=== PATIENT | female | born 1980 ===

== ENCOUNTER 2024-06-14 06:13 | Emergency (ER) | payer SELFPAY ==
[2024-06-14 06:39] LABS: BASOPHILS PERCENT AUTO 0.1 % (0.0-1.0); EOSINOPHILS PERCENT AUTO 0.1 % (1.0-3.0); HEMATOCRIT 40.6 % (37.0-47.0); LYMPHOCYTES PERCENT AUTO 7.8 % (20.5-50.1); MEAN CORPUSCULAR HEMOGLOBIN 33.3 pg (27.0-34.0); MEAN CORPUSCULAR HGB CONC 34.5 g/dL (33.0-35.0); MEAN CORPUSCULAR VOLUME 96.7 fL (80-100); MONOCYTES PERCENT AUTO 4.8 % (2-8); NEUTROPHILS PERCENT AUTO 87.2 % (42.2-75.2); PLATELET COUNT,PLT 317 10^3/uL (150-450); WHITE BLOOD CELL COUNT,WBC 19.7 10^3/uL (5.0-10.0)
[2024-06-14] MEDS: fentaNYL 100 MCG/2 ML SDV IVPUSH ONE (06:42)
[2024-06-14] MEDS: Ondansetron 4 MG/2 ML SDV IVPUSH ONE ×2 (06:43→09:01)
[2024-06-14] MEDS: Sodium Chloride 0.9% 10 ML Syringe FLUSH PRN (06:43)
[2024-06-14] MEDS: Lactated Ringers 1,000 ML IV SCH ×2 (06:59→09:01)
[2024-06-14] MEDS: Morphine 2 MG/ML SYRINGE IVPUSH ONE ×2 (07:04→09:00)
[2024-06-14 07:20] LABS: INR 0.9 (0.9-1.2); PROTHROMBIN TIME 9.5 SEC (9.0-12.0)
[2024-06-14 07:34] LABS: CORONAVIRUS COVID-19 NAA NEGATIVE (NEGATIVE); INFLUENZA A NAA NEGATIVE (NEGATIVE); INFLUENZA B NAA NEGATIVE (NEGATIVE)
[2024-06-14] MEDS: Morphine 4 MG/ML Syringe IVPUSH ONE (07:49)
[2024-06-14 07:58] LABS: ALANINE AMINOTRANSFERASE,ALT 38 U/L (14-59); ALBUMIN 3.9 g/dL (3.4-5.0); ALKALINE PHOSPHATASE 56 U/L (46-116); ASPARTATE AMNIOTRANSFERASE,AST 18 U/L (15-37); BILIRUBIN TOTAL 0.6 mg/dL (0.2-1.0); BLOOD UREA NITROGEN,BUN 10 mg/dL (7-18); BUN/CREATININE RATIO 11.4 (No establ ref range); CALCIUM 9.6 mg/dL (8.5-10.1); CARBON DIOXIDE,CO2 24 mmol/L (21-32); CHLORIDE,CL 97 mmol/L (98-107); CREATININE 0.88 mg/dL (0.55-1.02); EST CRCL DRUG DOSING (CG) 68.98 mL/min; GLUCOSE RANDOM 130 mg/dL (70-99); LIPASE 15 U/L (16-77); MAGNESIUM 1.6 mg/dL (1.8-2.4); SODIUM,NA 137 mmol/L (136-145)
[2024-06-14 07:59] LABS: ESTIMATED GFR 82 mL/min (>=60)
[2024-06-14] MEDS: Iopamidol 612 MG/ML 100 ML Bottle IVPUSH ONE (07:59)
[2024-06-14 08:43] LABS: APPEARANCE,URINE CLEAR (CLEAR); BILIRUBIN,URINE NEGATIVE (NEGATIVE); COLOR,URINE YELLOW (YELLOW); GLUCOSE,URINE NEGATIVE (NEGATIVE); KETONES,URINE 80 (NEGATIVE); LEUKOCYTE ESTERASE,URINE NEGATIVE (NEGATIVE); NITRITE,URINE NEGATIVE (NEGATIVE); OCCULT BLOOD,URINE NEGATIVE (NEGATIVE); PH,URINE 7.5 (5.0-9.0); PROTEIN,URINE NEGATIVE (NEGATIVE); UROBILINOGEN,URINE 0.2 mg/dL (0.2-1.0)
[2024-06-14] MEDS ORDERED: Naloxone 2 MG/2 ML Syringe IVPUSH PRN (08:57)
[2024-06-14 09:08] LABS: LACTIC ACID 2.3 mmol/L (0.4-2.0)
== END 2024-06-14 09:31 ==
LOC: DL.ED 06:13
DX: K35.30 Acute appendicitis with localized peritonitis, without perforation or gangrene (principal); D72.825 Bandemia; R79.89 Other specified abnormal findings of blood chemistry; I10 Essential (primary) hypertension; Z88.0 Allergy status to penicillin; Z90.710 Acquired absence of both cervix and uterus
CPT/HCPCS: 0240U; 36415; 74178; 80053; 81003; 81025; 83605; 83690; 83735; 84484; 85025; 85610; 87040; 93005; 96361; 96374; 96375; 96376; 99285-25; J2270; J2405; J3010; J3490; J7120; Q9967